=== PATIENT | female | born 1970 | race Caucasian/White ===

== ENCOUNTER 2017-04-04 12:19 | Emergency (ER) | payer BC ==
[~2017-04-04 12:19] MED LIST: ATOR10TA PO; ESTR1TAB PO; HYDR-3535 PO; HYDR50 PO; LANSO15 PO/TUBE; TAB-TAB PO
[2017-04-04 12:34] VITALS: BP 107/82; PULSE 78; RESP 15; TEMP 99; O2SAT 100
[2017-04-04 12:37] VITALS: O2SAT 100
[2017-04-04] MEDS ORDERED: SERT25TA83 PO (12:41)
[2017-04-04] MEDS ORDERED: GERD MED (12:43)
[2017-04-04] MEDS ORDERED: CHOL MED (12:43)
--- NOTE | 2017-04-04 12:51 | RADHPO ---
EXAM DATE/TIME: 04/04/2017 12:43 [place] COMPARISON: CHEST SINGLE AP, June 10, 2013, 0:03. INDICATIONS : Mid sternal area chest pain MEDICAL HISTORY : None. SURGICAL HISTORY : None. ENCOUNTER: Initial ACUITY: 2 days PAIN SCORE: 10/10 LOCATION: Bilateral chest FINDINGS: A single view of the chest demonstrates the lungs to be symmetrically aerated without evidence of mas s, infiltrate or effusion. The cardiomediastinal contours are unremarkable. Osseous structures are intact. CONCLUSION: No acute disease. Jose Cruz Wyman MD on April 04, 2017 at 12:49 Board Certified Radiologist. This report was verified electronically.
[2017-04-04 12:53] LABS: AUTOMATED NEUTROPHIL # 4.7 TH/MM3 (1.8-7.7); BASOPHIL % 0.3 % (0.0-2.0); EOSINOPHIL # 0.2 TH/MM3 (0-0.4); EOSINOPHIL % 2.8 % (0.0-4.0); HEMATOCRIT 40.6 % (35.0-46.0); HEMO FLAGS DIFF FINAL; LYMPH % 23.7 % (9.0-44.0); LYMPHOCYTE # 1.7 TH/MM3 (1.0-4.8); MEAN CELL VOLUME 85.1 FL (80.0-100.0); MEAN CORPUSCULAR HEMOGLOBIN 29.1 PG (27.0-34.0); MEAN CORPUSCULAR HGB CONC 34.2 % (32.0-36.0); MONO % 5.9 % (0.0-8.0); NEUT % 67.3 % (16.0-70.0); PLATELET COUNT 347 TH/MM3 (150-450); RED BLOOD COUNT 4.77 MIL/MM3 (4.00-5.30); RED CELL DISTRIBUTION WIDTH 12.4 % (11.6-17.2)
[2017-04-04 13:00] LABS: CHLORIDE 104 MEQ/L (98-107); POTASSIUM 3.8 MEQ/L (3.5-5.1); SODIUM (NA) 139 MEQ/L (136-145)
[2017-04-04] MEDS ORDERED: ALUMINUM/MAGNESIUM/SIMETH 30 ML CUP PO ONE (13:00)
[2017-04-04] MEDS ORDERED: SODIUM CHLORIDE 0.9% FLUSH 10 ML FLUSH IVF PRN (13:00)
[2017-04-04] MEDS ORDERED: PANTOPRAZOLE SODIUM 40 MG VIAL IVP ONE (13:00)
[2017-04-04] MEDS ORDERED: ASPIRIN 81 MG CHEW TAB PO ONE (13:00)
[2017-04-04] MEDS ORDERED: LIDOCAINE VISCOUS 2% SOLN 15 ML UDC PO ONE (13:00)
[2017-04-04] MEDS ORDERED: FAMOTIDINE 20 MG/2 ML VIAL IV PUSH ONE (13:00)
[2017-04-04] MEDS ORDERED: ONDANSETRON HCL 4 MG/2 ML VIAL IVP ONE (13:00)
[2017-04-04 13:03] LABS: ANION GAP 8 MEQ/L (5-15); BICARBONATE 26.9 MEQ/L (21.0-32.0); BLOOD UREA NITROGEN 11 MG/DL (7-18)
[2017-04-04 13:07] LABS: GLOMERULAR FILTRATION RATE 54 ML/MIN (>89)
[2017-04-04 13:09] VITALS: BP_SYST 103; BP_SYST 108; BP_DIAS 73; BP_DIAS 78
--- NOTE | 2017-04-04 13:16 | PD ---
HPI Chief Complaint: Chest Pain Time Seen by Provider: 12:59 Travel History International Travel<30 days: No Contact w/Intl Traveler<30days: No Traveled to known affect area: No History of Present Illness HPI Patient presents with complaints of chest pain. Onset 2 AM Wednesday morning. Constant in nature. Reports diaphoresis. Denies any shortness of breath. Denies any radiation to the arms. Admits to [facility]. History of hyperlipidemia without hypertension. History of diabetes. Positive smoker. Positive family cardiac history. Denies personal cardiac history. PFSH Past Medical History Anxiety: Yes Cancer: No Cardiovascular Problems: No High Cholesterol: Yes Diabetes: No Diminished Hearing: No Endocrine: Yes Gastrointestinal Disorders: No GERD: Yes Genitourinary: No Hepatitis: No Hiatal Hernia: No Hypertension: No Immune Disorder: No Musculoskeletal: No Neurologic: No Psychiatric: Yes (CLAUSTROPHOBIC IN MRI) Reproductive: Yes (ABDOMINAL/PELVIC PAIN, ABNORMAL BLEEDING) Pancreatitis: Yes Thyroid Disease: Yes (HYPO) ?: Not Past Surgical History AICD: No Appendectomy: Yes Cholecystectomy: Yes Gynecologic Surgery: Yes (RT OOPHORECTOMY HYSTERECTOMY) Hysterectomy: Yes Joint Replacement: No Pacemaker: No Tonsillectomy: Yes Social History Alcohol Use: Yes (SOCIALLY) Tobacco Use: Yes (11/18 PPD) Substance Use: No Allergies-Medications (Allergen,Severity, Reaction): Coded Allergies: Codeine (Verified Adverse Reaction, Severe, Nausea/Vomiting, 04/04/17) MIGRAINES. Reported Meds & Prescriptions Reported Meds & Active Scripts Active Hydrocodone-Acetaminophen 5-325 mg Tab 1 Tab PO Q6H PRN Naproxen 500 Mg Tab 500 Mg PO BID Reported [Gerd Med] [Chol Med] Sertraline (Sertraline HCl) 25 Mg Tab 25 Mg PO HS Review of Systems General / Constitutional: No: Fever Eyes: No: Visual changes HENT: No: Headaches Cardiovascular: Positive: Chest Pain or Discomfort Respiratory: No: Shortness of Breath Gastrointestinal: No: Abdominal Pain Genitourinary: No: Dysuria Musculoskeletal: No: Pain Skin: No Rash Neurologic: No: Weakness Psychiatric: No: Depression Endocrine: No: Polydipsia Hematologic/Lymphatic: No: Easy Bruising Physical Exam Narrative GENERAL: Well-nourished, well-developed patient. SKIN: Focused skin assessment warm/dry. HEAD: Normocephalic. EYES: No scleral icterus. No injection or drainage. NECK: Supple, trachea midline. No JVD or lymphadenopathy. CARDIOVASCULAR: Regular rate and rhythm without murmurs, gallops, or rubs. RESPIRATORY: Breath sounds equal bilaterally. No accessory muscle use. GASTROINTESTINAL: Abdomen soft, non-tender, nondistended. MUSCULOSKELETAL: No cyanosis, or edema. BACK: Nontender without obvious deformity. No CVA tenderness. Data Data Last Documented VS Vital Signs Date Time Temp Pulse Resp B/P Pulse Ox O2 Delivery O2 Flow Rate FiO2 04/04/17 13:09 103/78 108/73 04/04/17 12:52 Room Air 04/04/17 12:37 100 04/04/17 12:34 99.0 78 15 Orders Electrocardiogram (04/04/17 12:35) Complete Blood Count With Diff (04/04/17 12:35) Ckmb (Isoenzyme) Profile (04/04/17 12:35) Troponin I (04/04/17 12:35) Chest, Single Ap (04/04/17 12:35) Iv Access Insert/Monitor (04/04/17 12:35) Ecg Monitoring (04/04/17 12:35) Oxygen Administration (04/04/17 12:35) Oximetry (04/04/17 12:35) Prothrombin Time / Inr (Pt) (04/04/17 12:59) Act Partial Throm Time (Ptt) (04/04/17 12:59) Bilateral Bp Monitoring (04/04/17 12:59) Aspirin Chew (Aspirin Chew) (04/04/17 13:00) Sodium Chloride 0.9% Flush (Ns Flush) (04/04/17 13:00) Ondansetron Inj (Zofran Inj) (04/04/17 13:00) Pantoprazole Inj (Protonix Inj) (04/04/17 13:00) Famotidine Inj (Pepcid Inj) (04/04/17 13:00) Al-Mag Hy-Si 40-40-4 Mg/Ml Liq (Mag-Al P (04/04/17 13:00) Lidocaine 2% Viscous (Xylocaine 2% Visco (04/04/17 13:00) Ketorolac Inj (Toradol Inj) (04/04/17 13:30) Comprehensive Metabolic Panel (04/04/17 12:45) Magnesium (Mg) (04/04/17 12:45) Labs Laboratory Tests Test 04/04/17 04/04/17 12:45 12:48 Prothrombin Time 11.0 SEC Prothromb Time International 1.0 RATIO Ratio Activated Partial 27.0 SEC Thromboplast Time Sodium Level 139 MEQ/L Potassium Level 3.8 MEQ/L Chloride Level 104 MEQ/L Carbon Dioxide Level 26.9 MEQ/L Anion Gap 8 MEQ/L Blood Urea Nitrogen 11 MG/DL Creatinine 1.10 MG/DL Estimat Glomerular Filtration 54 ML/MIN Rate Random Glucose 100 MG/DL Calcium Level 9.2 MG/DL Magnesium Level 2.3 MG/DL Total Bilirubin 0.3 MG/DL Aspartate Amino Transf 16 U/L (AST/SGOT) Alanine Aminotransferase 21 U/L (ALT/SGPT) Alkaline Phosphatase 64 U/L Total Creatine Kinase 85 U/L Troponin I LESS THAN 0.02 NG/ML Total Protein 7.6 GM/DL Albumin 4.0 GM/DL White Blood Count 7.0 TH/MM3 Red Blood Count 4.77 MIL/MM3 Hemoglobin 13.9 GM/DL Hematocrit 40.6 % Mean Corpuscular Volume 85.1 FL Mean Corpuscular Hemoglobin 29.1 PG Mean Corpuscular Hemoglobin 34.2 % Concent Red Cell Distribution Width 12.4 % Platelet Count 347 TH/MM3 Mean Platelet Volume 6.6 FL Neutrophils (%) (Auto) 67.3 % Lymphocytes (%) (Auto) 23.7 % Monocytes (%) (Auto) 5.9 % Eosinophils (%) (Auto) 2.8 % Basophils (%) (Auto) 0.3 % Neutrophils # (Auto) 4.7 TH/MM3 Lymphocytes # (Auto) 1.7 TH/MM3 Monocytes # (Auto) 0.4 TH/MM3 Eosinophils # (Auto) 0.2 TH/MM3 Basophils # (Auto) 0.0 TH/MM3 CBC Comment DIFF FINAL Differential Comment MDM Medical Decision Making Medical Screen Exam Complete: Yes Emergency Medical Condition: Yes Differential Diagnosis ACS, reflux, Rodriguez's esophagitis, gastric ulcer, duodenal ulcer, duodenitis, pericarditis, costochondritis, pericarditis Narrative Course Assessment and plan discussed with patient at bedside. EKG rate of 74 sinus rhythm no signs of pericarditis. Cardiac enzymes within normal limits. No benefit with GI cocktail. Last 72 hours Impressions Chest X-Ray 04/04/17 [id number] Signed Impressions: Service Date/Time: Tuesday, April 04, 2017 12:43 - CONCLUSION: No acute disease. Jose Cruz Wyman MD Diagnosis Primary Impression: Costochondritis Patient Instructions: General Instructions Additional Instructions: Encouraged regular use of nonsteroidal anti-inflammatories, discussed gastric protection, encouraged to return to emergency with any change in symptoms, encouraged to follow-up with her PCP Med/Other Pt SpecificInfo: Prescription(s) given Scripts Hydrocodone-Acetaminophen 5-325 mg Tab1 Tab PO Q6H PRN (PAIN) #20 TAB Ref 0 Prov:Timmy Monge MD 04/04/17 Naproxen 500 Mg [id number] Mg PO BID #30 TAB Ref 0 Prov:Timmy Monge MD 04/04/17 Disposition: 01 DISCHARGE HOME Condition: Good Timmy Monge MD April 04, 2017 13:15
[2017-04-04 13:26] LABS: CREATINE KINASE 85 U/L (26-192)
[2017-04-04] MEDS ORDERED: KETOROLAC TROMETHAMINE 30 MG/ML (IVP) VIAL IV PUSH ONE (13:30)
[2017-04-04 13:39] LABS: TOTAL BILIRUBIN ADULT 0.3 MG/DL (0.2-1.0)
[2017-04-04 13:41] LABS: ALKALINE PHOSPHATASE 64 U/L (45-117)
[2017-04-04 13:57] LABS: ALT (GPT) 21 U/L (10-53); AST (GOT) 16 U/L (15-37); MAGNESIUM 2.3 MG/DL (1.5-2.5)
[2017-04-04] MEDS ORDERED: HYDR-3516 PO (14:44)
[2017-04-04] MEDS ORDERED: NAPR500T PO (14:44)
[2017-04-04] MEDS ORDERED: HYDROcodone/IBUPROFEN 7.5MG/200MG TAB PO ONE (14:45)
[2017-04-04 14:47] VITALS: BP 109/66; PULSE 78; RESP 16; TEMP 98.7; O2SAT 100
[2017-04-04] MEDS ORDERED: ACETAMINOPHEN/HYDROcodone 325 MG/5 MG TAB PO ONE (15:00)
--- NOTE | 2017-04-05 13:15 | EKG ---
Date Performed: 04/04/2017 Time Performed: 12:19:16 PTAGE: 46 years EKG: Sinus rhythm . Poor R wave progression - probable normal variant Borderline ECG Compared to prior tracing no signi ficant change PREVIOUS TRACING : 01/09/2015 09.14 DOCTOR: Garrett Arnold Interpretating Date/Time 04/05/2017 13:13:44
== END 2017-04-04 15:20 | disposition home or self-care (01) ==
LOC: PHED 12:19
DX: M94.0 Chondrocostal junction syndrome [Tietze] (principal); E78.00 Pure hypercholesterolemia, unspecified; F17.210 Nicotine dependence, cigarettes, uncomplicated
CPT/HCPCS: 71010; 80053; 82550; 83735; 84484; 85025; 85610; 85730; 93005; 96374; 96375; 99285; C9113; J1885; J2405